=== PATIENT | male | born 1965 | race Caucasian/White ===

== ENCOUNTER → 2020-08-30 14:21 | Outpatient (BNVA) | payer SELFPAY | PROVIDERS: PCP Family Medicine; Visit Provider Physician Assistant | DX: Z02.79 Encounter for issue of other medical certificate (principal) ==

== ENCOUNTER 2024-05-12 15:30 | Emergency (ER) | payer MEDICAID, SELFPAY ==
--- NOTE | ~2024-05-12 | CT_ITS ---
CLINICAL HISTORY: hypoxic, sob CT chest without contrast Comparison: CR - XR CHEST 2V - 05/12/24 17:25 EST Findings: The heart size is normal. Wlrynozh-qk-ymhlr hiatal hernia is present. There is very mild peripheral septal thickening bilaterally. No consolidation or infiltrate. Scattered sequela of prior granulomatous disease noted. Limited evaluation of the upper abdominal contents demonstrates cholelithiasis and hepatic steatosis. The bones are intact. IMPRESSION: 1. Mild peripheral septal thickening, interstitial edema or chronic interstitial lung change. 2. Sequela of prior granulomatous disease. 3. Rdwnqujq-gt-bggwc hiatal hernia. This document has been electronically signed by: Omkar Dunn MD, PHD on 05/12/2024 23:34:10
--- NOTE | ~2024-05-12 | XR_ITS ---
CLINICAL HISTORY: sob 2 view chest x-ray Comparison: None Findings: Lungs are clear. No consolidation or pleural effusion. There is a small hiatal hernia. Heart size is normal. No acute fracture. IMPRESSION: 1. No acute cardiopulmonary disease. 2. Small hiatal hernia. This document has been electronically signed by: Jennifer Ronquillo MD on 05/12/2024 17:31:41
[2024-05-12 16:42] VITALS: BP 170/95; PULSE 76; RESP 20; TEMP 36.7; O2SAT 91; BMI 30.4
--- NOTE | 2024-05-12 16:45 | ECG_ITS ---
Test Reason : DYSPNEAA Blood Pressure : */* mmHG Vent. Rate : 74 BPM Atrial Rate : 74 BPM P-R Int : 116 ms QRS Dur : 80 ms QT Int : 378 ms P-R-T Axes : 57 28 65 degrees QTcB Int : 419 ms Normal sinus rhythm Normal ECG No previous ECGs available Referred By: Gilda Adamson Electronically Signed By: Reji Mcocrmick
[2024-05-12 17:05] LABS: MANUAL DIFF FLAG NO
[2024-05-12 17:07] LABS: Basophils Absolute Auto 0.1 X10*3/uL (0.0-0.2); Basophils Percent Auto 0.9 % (0-2); Eosinophils Absolute Auto 0.3 X10*3/uL (0.0-0.4); Eosinophils Percent Auto 4.7 % (0-4); Hematocrit 47.4 % (42.0-52.0); Hemoglobin 16.5 g/dl (14.0-18.0); Imm Gran Abs Auto 0.02 X10*3/uL (0.00-0.03); Imm Gran Pct Auto 0.4 % (0.0-0.4); Lymphocytes Absolute Auto 1.9 X10*3/uL (1.2-4.9); Lymphocytes Percent Auto 34.7 % (20-40); Mean Corpuscular HGB Conc 34.8 g/dl (31.0-36.0); Mean Corpuscular Volume 91.9 fL (80.0-98.0); Mean Platelet Volume 11.4 fL (9.4-12.4); Monocytes Absolute Auto 0.5 X10*3/uL (0.1-1.2); Monocytes Percent Auto 8.2 % (2-11); Neutrophils Absolute Auto 2.8 x10*3/uL (2.0-8.3); Neutrophils Percent Auto 51.1 % (45-73); Platelet Count 152 X10*3/uL (160-400); Red Blood Count 5.16 X10*6/uL (4.60-5.80); Red Cell Distribution Width 12.6 % (11.0-16.0); White Blood Count 5.5 X10*3/uL (4.8-10.8)
[2024-05-12 17:14] LABS: Prothrombin Time 11.4 SEC (10.9-12.4)
[2024-05-12 17:33] LABS: Troponin-I High Sensitivity 3.8 ng/L (<3.5-35.0)
[2024-05-12 17:35] LABS: Albumin Level 4.4 g/dL (3.5-5.0); Alkaline Phosphatase 63 U/L (39-117); Anion Gap 17 (12-20); Aspartate Amino Transferase 58 U/L (5-37); Bilirubin Total 0.6 mg/dL (0.0-1.0); Blood Urea Nitrogen 5 mg/dL (9-16); Calcium 8.7 mg/dL (8.4-10.2); Carbon Dioxide 28 mmol/L (22-29); Chloride 106 mmol/L (96-108); Creatinine Clr Calc Pharmacy 101.4; Estimated Glomerular Filt Rate > 60; Glucose Random 107 mg/dL (60-115); Potassium 4.1 mmol/L (3.3-5.1); Sodium 147 mmol/L (135-145); Total Protein 7.7 g/dL (6.5-8.0)
[2024-05-12 17:52] LABS: Alanine Aminotransferase 79 U/L (0-40)
[2024-05-12 17:54] LABS: Influenza A PCR NEGATIVE (Negative); Influenza B PCR NEGATIVE (Negative); Resp Syncy Virus RNA Qual PCR NEGATIVE (Negative); SARS COV2 PCR INHOUSE NEGATIVE (Negative)
[2024-05-12 20:50] VITALS: BP 176/103; PULSE 73; RESP 18; TEMP 36.6; O2SAT 93
[2024-05-12 21:19] VITALS: BP 177/87; PULSE 71; RESP 20; TEMP 37.1; O2SAT 93
--- NOTE | 2024-05-12 22:16 | PC.NURSE ---
RN received call from lab pertaining to add on order for BNP is not able to be process due to age of specimen. Per lab a new order would be required but MD cunningham stated that was not necessary
[2024-05-12 22:26] LABS: D Dimer High Sensitivity < 150 NG/ML
--- NOTE | 2024-05-12 22:33 | PC.NURSE ---
Walking O2 sat 93% on RA throughout [address] Soto made aware.
--- NOTE | 2024-05-12 22:37 | ED_ITS ---
HPI - SOB/Dyspnea General Chief Complaint: Dyspnea Stated Complaint: SOB Time Seen by Provider: 05/12/24 21:45 Source: patient Mode of arrival: ambulatory Limitations: no limitations History of Present Illness ED Provider: Dr. Zari Soto HPI Narrative: Patient comes to emergency room complaining of shortness of breath. Patient states that he was doing well in the morning, then in the afternoon started feeling short of breath, states that he can not quite catch his breath. Patient denies any fever chills, denies coughing, denies any chest pain. Denies any lower extremity edema or pain. Related Data Previous Rx's ?Medication ?Instructions ?Recorded lorazepam 1 mg tablet (Ativan) 1 mg PO BID PRN anxiety #6 tabs 05/13/24 prednisone 50 mg tablet 50 mg PO DAILY #4 tabs 05/13/24 Allergies Allergy/AdvReac Type Severity Reaction Status Date / Time Sulfa (Sulfonamide Allergy Rash Verified 05/12/24 16:47 Antibiotics) Review of Systems 2 Review of Systems: Constitutional : No Weight loss, No Fever, No Chills, No Night Sweats, No Fatigue, No Malaise ENT/Mouth : No Hearing loss, No Ear Pain, No Nasal Congestion, No Sinus Pain, No Hoarseness, No sore throat, No Rhinorrhea, No Swallowing Difficulty Eyes: No Eye Pain, No Swelling, No Redness, No Foreign Body, No Discharge, No Vision Changes Cardiovascular : No Chest Pain, denies orthopnea, no edema or palpitations Respiratory : No Cough, No Sputum, No Wheezing, No Smoke Exposure, complaining of Dyspnea Gastrointestinal : No Nausea, No Vomiting, No Diarrhea, No Constipation, No abdominal Pain, No Hematochezia, No Melena Genitourinary : no irregular bleeding, No Dysuria, No Urinary Frequency, No Hematuria, No Urinary Incontinence, No Urgency, No Flank Pain, No Urinary Flow Changes, No Hesitancy Musculoskeletal : No joint pain, No Myalgias, No Joint Swelling Skin : No Skin Lesions, No rash Neuro : No Weakness, No Numbness, No Paresthesias, No Loss of Consciousness, No Dizziness, No Headache Psych : No Anxiety/Panic, No Depression, No SI/HI/AH/VH, No Social Issues, Heme/Lymph: No Bruising, No Bleeding,No Lymphadenopathy Endocrine : No Polyuria, No Polydipsia, No Temperature Intolerance PMFSH Social History Social History Alcohol intake: current Alcohol intake frequency: 3 or more drinks per day Alcohol type: hard liquor Smoked in Last 30 Days: No Use of substances other than those prescribed or required for medical reasons: Yes Substance Use Type: Marijuana Substance Use Frequency: Daily Advance Directives: No Advance Directives Information Provided: Yes Physical Exam 2 Vital Signs: Vital Signs: Last Vital Signs Temp 98.5 F 05/12/24 23:32 Pulse 72 05/12/24 23:32 Resp 20 05/12/24 23:32 BP 163/88 H 05/12/24 23:32 Pulse Ox 93 05/12/24 23:32 O2 Del Method Room Air 05/12/24 23:32 BMI result Body Mass Index 30.4 Const: Other: Appearance: Alert. Oriented X3. No acute distress. Eyes: Pupils equal, round and reactive to light. ENT: Pharynx normal. Neck: Normal inspection. Neck supple. No lymph nodes noted. No crepitus CVS: Normal heart rate and rhythm. Pulses normal. Normal S1 and S2 Respiratory: No respiratory distress. Breath sounds normal. No Wheezing. No rales Abdomen: Soft and nontender. No rigidity. No distention. Skin: Skin warm and dry. Normal skin color. Normal skin turgor. Extremities: No lower extremity edema. No Lacerations. No Rash Neuro: Oriented X 3. No motor deficit. No sensory deficit. Moving all extremities. No slurred speech. CN 2 through 12 grossly intact Psych: calm, cooperative, normal affect Medical Decision Making Medical Decision Making MDM Narrative: My interpretation of labs: No significant abnormality in patient's hematology and chemistry, slightly bumped chronically AST ALT, troponin negative, D-dimer negative, serology negative for flu RSV and COVID. Chest x-ray does not show any acute abnormality Patient's oxygen saturation while ambulating stayed at 93% D-dimer negative, no tachycardia, no lower extremity pain or swelling, no oxygen desaturation, pulmonary embolism is not suspected ct chest does not show any infiltrates. It does show chronic interstitial changes, possible prior granulomatous disease. I discussed the CT findings with the patient. 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 Patient requesting a tablet of Ativan. Also, patient was given a dose of prednisone. Patient will follow-up with pulmonology Patient states that at this time, he no longer feels short of breath, patient feels back to baseline. Also, patient's partner reported that she has noted that when the patient sleeps, occasionally he stops breathing. Patient likely has undiagnosed sleep apnea. Patient will follow-up and discuss this issue as well with his guest relations manager. Patient may be a candidate for a sleep study Differential Diagnosis Differential Diagnoses: The differential diagnosis associated with the presentation includes (As above) Lab Data MDM Lab Attestation statement: I reviewed the patient's lab results. 05/12/24 16:59 05/12/24 16:59 Labs: Lab Results 05/12/24 Range/Units 16:59 WBC 5.5 (4.8-10.8) X10*3/uL RBC 5.16 (4.60-5.80) X10*6/uL Hgb 16.5 (14.0-18.0) g/dl Hct 47.4 (42.0-52.0) % MCV 91.9 (80.0-98.0) fL MCH 32.0 (27.0-33.0) pg MCHC 34.8 (31.0-36.0) g/dl RDW 12.6 (11.0-16.0) % Plt Count 152 L (160-400) X10*3/uL MPV 11.4 (9.4-12.4) fL Immature Gran % (Auto) 0.4 (0.0-0.4) % Neut % (Auto) 51.1 (45-73) % Lymph % (Auto) 34.7 (20-40) % Kingfisher % (Auto) 8.2 (2-11) % Eos % (Auto) 4.7 H (0-4) % Baso % (Auto) 0.9 (0-2) % Lymph # (Auto) 1.9 (1.2-4.9) X10*3/uL King[place]isher # (Auto) 0.5 (0.1-1.2) X10*3/uL Eos # (Auto) 0.3 (0.0-0.4) X10*3/uL Baso # (Auto) 0.1 (0.0-0.2) X10*3/uL Abs Immat Gran (auto) 0.02 (0.00-0.03) X10*3/uL Absolute Neuts (auto) 2.8 (2.0-8.3) x10*3/uL Absolute Nucleated RBC 0.000 (0.0-0.012) X10*3/uL Nucleated RBC % (auto) 0.0 (0.0-0.2) /100WBC PT 11.4 (10.9-12.4) SEC INR 1.0 (0.9-1.1) D-Dimer High Sensitivty < 150 NG/ML Sodium 147 H (135-145) mmol/L Potassium 4.1 (3.3-5.1) mmol/L Chloride 106 (96-108) mmol/L Carbon Dioxide 28 (22-29) mmol/L Anion Gap 17 (12-20) BUN 5 L (9-16) mg/dL Creatinine 0.94 (0.5-1.4) mg/dL Estim Creat Clear Calc 101.4 Estimated GFR > 60 Random Glucose 107 (60-115) mg/dL Calcium 8.7 (8.4-10.2) mg/dL Total Bilirubin 0.6 (0.0-1.0) mg/dL AST 58 H (5-37) U/L ALT 79 H (0-40) U/L Alkaline Phosphatase 63 (39-117) U/L Troponin I High Sens 3.8 (<3.5-35.0) ng/L Total Protein 7.7 (6.5-8.0) g/dL Albumin 4.4 (3.5-5.0) g/dL Influenza Type A (PCR) NEGATIVE (Negative) Influenza Type B (PCR) NEGATIVE (Negative) RSV RNA Qual (PCR) NEGATIVE (Negative) SARS-CoV-2 RNA (RT-PCR) NEGATIVE (Negative) Independent Interpretation I performed an independent interpretation of an: CT Scan Radiology Impression Discussion of test interpretation with radiology: I have reviewed the radiologist's reading. Radiologist Impression: The heart size is normal. Elyngnvk-qk-seuhu hiatal hernia is present. There is very mild peripheral septal thickening bilaterally. No consolidation or infiltrate. Scattered sequela of prior granulomatous disease noted. Limited evaluation of the upper abdominal contents demonstrates cholelithiasis and hepatic steatosis. The bones are intact. IMPRESSION: 1. Mild peripheral septal thickening, interstitial edema or chronic interstitial lung change. 2. Sequela of prior granulomatous disease. 3. Wxsnadfg-wo-kqigx hiatal hernia Discharge Plan Discharge Clinical Impression: Acute dyspnea Patient Disposition: Home, Self-Care Instructions: Dyspnea (ED) Additional Instructions: Please follow-up with your primary care physician and with your guest relations manager tomorrow. Please discuss with your guest relations manager the CT findings which we discussed and also a possible referral to a sleep study for undiagnosed obstructive sleep apnea. If you have any worsening or new symptoms, please return to the emergency room or call 911 Prescriptions: New prednisone 50 mg tablet 50 mg PO DAILY Qty: 4 0RF lorazepam [Ativan] 1 mg tablet 1 mg PO BID PRN (Reason: anxiety) Qty: 6 0RF Print Language: Omani
[2024-05-12 23:32] VITALS: BP 163/88; PULSE 72; RESP 20; TEMP 36.9; O2SAT 93
[2024-05-13] MEDS: predniSONE 10 MG TABLET 50 MG PO (01:10)
[2024-05-13] MEDS: LORazepam 1 MG TABLET PO (01:10)
[2024-05-13 01:15] VITALS: BP 157/85; PULSE 79; RESP 19; TEMP 36.8; O2SAT 93
== END 2024-05-13 01:16 | disposition home or self-care (01) ==
PROVIDERS: Physician Assistant Medical; Emergency Provider Emergency Medicine; PCP Family Medicine
DX: R06.02 Shortness of breath (principal); K44.9 Diaphragmatic hernia without obstruction or gangrene; R94.31 Abnormal electrocardiogram [ECG] [EKG]; Z03.818 Encounter for observation for suspected exposure to other biological agents ruled out; Z79.899 Other long term (current) drug therapy
CPT/HCPCS: 0241U; 71046; 71250; 80053; 84484; 85025; 85379; 85610; 93005; 99284

== ENCOUNTER → 2024-05-12 16:45 | Outpatient (BNV) | payer BC, SELFPAY | PROVIDERS: Emergency Provider Emergency Medicine; PCP Family Medicine; Visit Provider Internal Medicine Cardiovascular Disease | DX: R06.00 Dyspnea, unspecified (principal) | CPT/HCPCS: 93010 ==

== ENCOUNTER → 2024-05-12 16:45 | Outpatient (BNV) | payer BC, SELFPAY | PROVIDERS: PCP Family Medicine; Visit Provider Radiology Diagnostic Radiology | DX: R06.02 Shortness of breath (principal) | CPT/HCPCS: 71046; 71250 ==